=== PATIENT | male | born 1970 | race African-American/Black ===

== ENCOUNTER 2019-05-20 10:21 | Inpatient (IN) | payer OTHER ==
[~2019-05-20] VITALS: Ht 188 cm; Wt 113.4 kg
[2019-05-20] MEDS ORDERED: ASPI-1497 PO (10:43)
[2019-05-20 11:56] LABS: CHLORIDE 108 mEq/L (98-107); PARTIAL THROMBOPLASTIN TIME 28.7 sec (23.4-31.0); PROTHROMBIN TIME 10.7 sec (9.6-11.0)
[2019-05-20 12:11] LABS: BASOPHILS % 0.9 % (0.0-2.0); EOSINOPHILS % 0.9 % (0.0-5.0); HEMOGLOBIN. 14.9 g/dL (14.0-18.0); LYMPHOCYTES % 50.6 % (20.0-50.0); MEAN CORPUSCULAR HEMOGLOBIN 32.6 pg (28.0-32.0); MEAN CORPUSCULAR VOLUME 94.4 fL (80.0-94.0); MEAN PLATELET VOLUME 10.4 fl (7.4-10.4); MONOCYTES % 8.3 % (2.0-8.0); NEUTROPHILS % 39.3 % (40.0-76.0); PLATELET 195 x1000/uL (130-400); RED BLOOD CELL COUNT 4.55 mill/uL (4.7-6.1); RED CELL DISTRIBUTION WIDTH 13.7 % (11.6-14.6)
[2019-05-20] MEDS ORDERED: ASPIRIN 325MG EC TABLET PO ONE (13:00)
[2019-05-20 21:20] VITALS: BP 139/71
[2019-05-20] MEDS ORDERED: ACETAMINOPHEN 325MG TABLET PO PRN (22:45)
[2019-05-20] MEDS: HYDRALAZINE HCL 25MG TABLET PO SCH (23:13)
[2019-05-20] MEDS: MECLIZINE 25MG TABLET PO PRN (23:16)
[2019-05-21 04:00] VITALS: BP 126/68
[2019-05-21] MEDS: HYDRALAZINE HCL 25MG TABLET PO SCH ×2 (06:00→14:07)
[2019-05-21 08:00] VITALS: BP 125/59
[2019-05-21 10:43] LABS: BASOPHILS % 1.1 % (0.0-2.0); EOSINOPHILS % 1.4 % (0.0-5.0); HEMATOCRIT. 43.9 % (42.0-52.0); HEMOGLOBIN. 14.9 g/dL (14.0-18.0); LYMPHOCYTES % 56.3 % (20.0-50.0); MEAN CORPUSCULAR HEMOGLOBIN 32.2 pg (28.0-32.0); MEAN CORPUSCULAR VOLUME 95.1 fL (80.0-94.0); MEAN PLATELET VOLUME 10.5 fl (7.4-10.4); MONOCYTES % 6.7 % (2.0-8.0); NEUTROPHILS % 34.5 % (40.0-76.0); PLATELET 193 x1000/uL (130-400); RED BLOOD CELL COUNT 4.62 mill/uL (4.7-6.1); RED CELL DISTRIBUTION WIDTH 14.1 % (11.6-14.6)
[2019-05-21 10:46] LABS: CHLORIDE 106 mEq/L (98-107)
[2019-05-21 12:00] VITALS: BP 144/80
[2019-05-21] MEDS: MECLIZINE 25MG TABLET PO PRN (14:06)
[2019-05-21 16:00] VITALS: BP 149/81
[2019-05-21 20:00] VITALS: BP 153/65
== END 2019-05-21 20:25 | disposition home or self-care (01) | DRG 312 ==
LOC: ER 10:21 → 6WST 13:35 → EDBEDREQ 19:39 → ENRESERV 20:44
PROVIDERS: ADMIT Family Medicine; ATTEND Family Medicine
DX: R55 Syncope and collapse (principal); R00.1 Bradycardia, unspecified; I10 Essential (primary) hypertension; E66.9 Obesity, unspecified; Z82.49 Family history of ischemic heart disease and other diseases of the circulatory system; Z87.891 Personal history of nicotine dependence
CPT/HCPCS: 36415; 71045; 80048; 80053; 82962; 83880; 84484; 85025; 93005; 93306; 93880; 99285; J8597